=== PATIENT | female | born 1975 | race Caucasian/White ===

== ENCOUNTER 2018-12-07 17:10 | Emergency (ER) | payer OTHER ==
[~2018-12-07] VITALS: Ht 165.1 cm; Wt 88.9 kg
[2018-12-07] MEDS ORDERED: VISTARIL25 MG PO (17:44)
[2018-12-07] MEDS ORDERED: LIDEX 0.05% CRE15 GM T (17:44)
== END 2018-12-07 17:53 | disposition home or self-care (01) ==
LOC: ED 17:10
DX: S20.369A Insect bite (nonvenomous) of unspecified front wall of thorax, initial encounter (principal); W57.XXXA Bitten or stung by nonvenomous insect and other nonvenomous arthropods, initial encounter; Y93.89 Activity, other specified; Y92.89 Other specified places as the place of occurrence of the external cause; Y99.8 Other external cause status